=== PATIENT | female | born 2005 | race Caucasian/White ===

== ENCOUNTER 2025-04-21 13:19 | Outpatient (CLI) | payer OTHER | END 2025-04-21 13:20 | disposition home or self-care (01) | LOC: SCSRAD 13:19 | PROVIDERS: ATTEND Family Medicine | DX: J18.9 Pneumonia, unspecified organism (principal); B25.9 Cytomegaloviral disease, unspecified; R76.8 Other specified abnormal immunological findings in serum; K72.00 Acute and subacute hepatic failure without coma | CPT/HCPCS: 36415; 71046; 80053; 82977; 83520; 84134; 85025; 86200; 86644; 86645 ==